=== PATIENT | male | born 2005 | race Caucasian/White ===

== ENCOUNTER → 2024-07-12 10:35 | Outpatient (REF) | payer BC, SELFPAY | LOC: HWRAD 10:35 | PROVIDERS: ATTENDING PHYSICIAN Otolaryngology; FAMILY PHYSICIAN Pediatrics | DX: J32.2 Chronic ethmoidal sinusitis (principal) | CPT/HCPCS: 70486 ==

== ENCOUNTER 2024-08-02 16:04 | Emergency (ER) | payer BC, SELFPAY ==
[2024-08-02 16:05] VITALS: BP 150/110
[2024-08-02 16:57] VITALS: BMI 27.8
--- NOTE | 2024-08-02 17:04 | ED.GENMED ---
History of Present Illness
<Antony Loya DO, Resident - Last Filed: 08/02/24 18:11>
General
Chief Complaint: Skin Surface Trauma
Source: patient
Time Seen by Provider: 08/02/24 17:01
History of Present Illness
History of Present Illness:
18-year-old male presents approximately 2 hours after getting his finger stuck in a car door. Patient reports having a finger laceration on the proximal third phalange of the right hand. Patient report no numbness and tingling, no coldness in the
finger. Patient has full range of motion to flexion extension of the finger. Patient reports his last tetanus was approximately 3 years ago, metal was not misael.
Past History
<Antony Loya DO, Resident - Last Filed: 08/02/24 18:11>
Past History
ED Past Medical History: None
Review of Systems
<Antony Loya DO, Resident - Last Filed: 08/02/24 18:11>
Review of Systems
Constitutional: Reports no symptoms
EENT: Reports no symptoms
Respiratory: Reports no symptoms
Cardiac: Reports no symptoms
ABD/GI: Reports no symptoms
: Reports no symptoms
Musculoskeletal: Reports joint swelling and other (Finger pain, right third proximal phalanges)
Skin: Reports other (Small horizontal laceration present on right third proximal phalangeal)
Neurological: Reports no symptoms
Phy Exam
<Antony Loya DO, Resident - Last Filed: 08/02/24 18:11>
General Physical Exam
General Presentation: well appearing and no apparent distress
Cardiovascular Exam
Cardiovascular Exam: regular rate/rhythm, no edema and no murmur
Pulmonary Exam
Pulmonary Exam: lungs clear, no respiratory distress and no crackles
Gastrointestinal Exam
Gastrointestinal Exam: non tender, soft and non distended
Musculoskeletal Exam
Musculoskeletal Exam: neuro vasc intact (Right hand is neurovascular intact, no numbness and tingling, full proprioception, full sensation, +2 pulses. Finger is not cold compared to rest of hand. Patient has full range of motion of both passive
and active flexion/extension of the right third proximal phalangeal)
Skin Exam
Skin Exam: other (Horizontal 2 cm laceration present on right third proximal phalange E)
Course
<Antony Loya DO, Resident - Last Filed: 08/02/24 18:11>
Orders/Labs/Results
Orders:
Orders
08/02/24 16:08
Finger(s)/Thumb 2 View Rt [CR Finger(s)/thumb Min 2 Vw Rt] Urgent
Comment:
Reason For Exam: injury
Indicate Which Finger:: Middle Finger
Vital Signs
Initial and Last Documented VS:
Initial Vital Signs
Temp Pulse Resp BP Pulse Ox
98.2 F 60 16 150/110 98
08/02/24 16:05 08/02/24 16:05 08/02/24 16:05 08/02/24 16:05 08/02/24 16:05
Last Documented Vital Signs
Temp Pulse Resp BP Pulse Ox
98.2 F 60 16 150/110 98
08/02/24 16:05 08/02/24 16:05 08/02/24 16:05 08/02/24 16:05 08/02/24 16:05
<Ashleigh Webb DO - Last Filed: 08/02/24 18:06>
Orders/Labs/Results
Orders:
Orders
08/02/24 16:08
Finger(s)/Thumb 2 View Rt [CR Finger(s)/thumb Min 2 Vw Rt] Urgent
Comment:
Reason For Exam: injury
Indicate Which Finger:: Middle Finger
Vital Signs
Initial and Last Documented VS:
Initial Vital Signs
Temp Pulse Resp BP Pulse Ox
98.2 F 60 16 150/110 98
08/02/24 16:05 08/02/24 16:05 08/02/24 16:05 08/02/24 16:05 08/02/24 16:05
Last Documented Vital Signs
Temp Pulse Resp BP Pulse Ox
98.2 F 60 16 150/110 98
08/02/24 16:05 08/02/24 16:05 08/02/24 16:05 08/02/24 16:05 08/02/24 16:05
Procedures
<Antony Loya DO, Resident - Last Filed: 08/02/24 18:11>
Laceration Closure
Right Proximal Third Finger(s):
Status of Wound: clean
Size of Wound in cm: 2
Description of Wound Edges: sharp
Preparation: cleaned with saline
Anesthesia: 1% Lidocaine
Revision/Debridement: routine- no revision
Type of Closure: single layer closure and interrupted sutures
Skin Closure Material: 5-0 nylon
Number of sutures: 3
<Antony Loya DO, Resident - Last Filed: 08/02/24 18:11>
MDM/Problems Addressed
Differential Diagnosis Includes:
Finger laceration
MDM/Problems Addressed:
18 male reports approximately 2 hours after getting his right hand stuck in a car door. Patient reports he has a approximate 2 cm horizontal laceration on the right proximal third phalange.
Patient reports he is up-to-date on tetanus, his last vaccine was approximately 3 years ago. Patient reports metal was not misael
Patient has full range of motion with flexion and extension of the finger, finger is not cold, no numbness and tingling, pulses +2 throughout right hand
Patient is neurovascularly intact, wound was irrigated with normal saline which demonstrated that it was deep
Right hand x-ray x-ray demonstrated no fractures or dislocation of the finger
Area was numbed up with 1% lidocaine without epinephrine
Finger was closed with 5.0 Vicryl sutures, 3 interrupted sutures were placed
Bactrim ointment was placed over wound and finger was wrapped in bandage
Patient is up-to-date on tetanus, will not require any tetanus vaccine at this visit
Encouraged follow-up with primary care doctor, urgent care or return to ED in 7 to 10 days for suture removal
Informed patient of symptoms of infection or compartment syndrome, encouraged return to ED if develops any symptoms
Encouraged daily changing of dressing and application of Bactrim ointment, gave patient sample
<Antony Loya DO, Resident - Last Filed: 08/02/24 18:11>
*Critical Care Note
Total Time (30-74mins, 75-104mins- exclusive of procedures): Not Applicable
ED Attending Note
<Antony Loya DO, Resident - Last Filed: 08/02/24 18:11>
-
Portions of this chart may have been created with voice recognition software.� Occasional wrong word or��sound alike� substitutions may have occurred due to the inherent limitations of voice recognition software.
<Ashleigh Webb DO - Last Filed: 08/02/24 18:06>
ED Attending Note
Patient seen and examined by attending physician: Yes
I performed the substantive portion of visit, reviewed & personally made and approve the management plan that is documented in note by myself or CLEOPATRA.: Yes
I performed a history and physical exam of patient and discussed management with resident, I reviewed resident's note and agree with documented findings and plan of care.: Yes
ED Attending Note:
18-year-old male presenting with finger laceration. Prior to arrival patient slammed his right third finger in a car door with subsequent laceration. Bleeding is controlled. Denies numbness or tingling. Denies additional injuries. Vital signs
within normal limits.
On exam, patient is a 2 cm laceration at the right third digit, proximal to the PIP. Laceration is subcutaneous. Laceration cleaned, no foreign body or contamination. X-ray without any sign of crush injury. No neurovascular compromise to the
digit with range of motion intact. Laceration was subsequently repaired. Please see procedure note. Otherwise stable for discharge with outpatient follow-up for suture removal. Return precautions discussed
Discharge Plan
Departure
Patient Disposition: Home (Routine Discharge)
Date of Disposition: 08/02/24
Time of Disposition: 17:59
Patient with high blood pressure during this ER visit?: Yes
Condition: Good
Discharge Problem:
Finger laceration
Instructions: Wound Care (DC), Laceration Repair With Stitches (DC), BLOOD PRESSURE
Prescriptions:
No Action
amoxicillin-pot clavulanate 600 MG/5 ML suspension for reconstitution
1,500 mg PO BID Qty: 300 0RF
Rx Instructions:
TAKE 1500 MG BID FOR TEN DAYS
moxifloxacin [Vigamox] 0.5 % drops
1 drp OPHTHALMIC TID Qty: 1 0RF
Referrals:
Antelmo Romero MD [Family Provider] - Call in 1-3 days for appt
Activity Restrictions/Additional Instructions:
Please have the stitches removed in 7 to 10 days, you can go to your PCP, urgent care or return to the emergency department.
Attached are instructions for wound care, please follow them. Please reapply antibiotic ointment tomorrow when you change the Band-Aid.
Please use [id number] Tylenol or Motrin as needed for pain.
Please return to the emergency department if you notice any numbness and tingling in the fingers, finger becomes extremely cold, you develop any redness around the cut or tenderness or if you develop any fever
Interventions
Interventions:
*Risk Screen - Suicide Last Done: 08/02/24 16:05
*General Assessment Last Done: 08/02/24 16:58
*Neglect/Abuse Screening Last Done: 08/02/24 16:05
*ED COVID-19 Vaccine History Last Done: 08/02/24 16:58
ED-Skin Assessment Last Done: 08/02/24 16:58
Discharge Date and Time
Print Language: WELSH
== END 2024-08-02 18:17 | disposition home or self-care (01) ==
LOC: EMR 16:04
PROVIDERS: EMERGENCY PHYSICIAN Student in an Organized Health Care Education/Training Program; FAMILY PHYSICIAN Pediatrics
DX: S61.212A Laceration without foreign body of right middle finger without damage to nail, initial encounter (principal); W23.0XXA Caught, crushed, jammed, or pinched between moving objects, initial encounter
CPT/HCPCS: 99283; 12001; 73140